=== PATIENT | male | born 1965 | race African-American/Black ===

== ENCOUNTER 2020-05-15 06:30 | Emergency (ER) | payer SELFPAY ==
[~2020-05-15] VITALS: Ht 193 cm; Wt 76.4 kg
[~2020-05-15 06:30] MED LIST: AMOX500C PO; HYDR-3164 PO; NAPR-682 PO; ORPH100T PO
--- NOTE | 2020-05-15 07:24 | PHYS DOC ---
Past Medical History Past Medical History: No Pertinent History Past Surgical History: No Surgical History Smoking Status: Never Smoker Alcohol Use: Occasionally Drug Use: None General Adult EDM: Chief Complaint: Congestion HPI: HPI: 54-year-old AA male who denies any significant past medical history, presents the ED with complaints of "soreness and tenderness" to the skin just lateral to his left nasal ala for the past 2 days. Patient states he took Tylenol and NyQuil last night. Woke up and noticed the skin had started to swell and is now extending to his left lower eye. 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 No bizu-mra-gyhromu decongestants, Sudafed or caffeine today. States he was told he has high blood pressure but does not have a primary care physician and takes no routine medications. No history of tobacco use or cocaine or meth use. Has no sinus pressure when bending forward. Denies any trauma to the face. Review of systems: Denies associated fever, chills, headache, neck stiffness, cough, sore throat, earache, dental pain, tooth ache, nasal congestion/discharge or rhinorrhea, postnasal drip, chest pain, hemoptysis, nausea, vomiting, diarrhea, blurry vision, neurologic deficits, abdominal or back pain, Review of Systems: Review of Systems: Constitutional: Denies fever or chills. [] Eyes: Denies change in visual acuity. [] HENT: Denies nasal congestion or sore throat. [] Respiratory: Denies cough or shortness of breath. [] Cardiovascular: Denies chest pain or edema. [] GI: Denies abdominal pain, nausea, vomiting,or diarrhea. [] : Denies dysuria. [] Musculoskeletal: Denies back pain or joint pain. [] Integument: Denies rash. [] Neurologic: Denies headache, focal weakness or sensory changes. [] Endocrine: Denies polyuria or polydipsia. [] Lymphatic: Denies swollen glands. [] Psychiatric: Denies depression or anxiety. [] Heart Score: Risk Factors: Risk Factors: DM, Current or recent (<one month) smoker, HTN, HLP, family history of CAD, obesity. Risk Scores: Score 0 - 3: 2.5% MACE over next 6 weeks - Discharge Home Score 4 - 6: 20.3% MACE over next 6 weeks - Admit for Clinical Observation Score 7 - 10: 72.7% MACE over next 6 weeks - Early Invasive Strategies Allergies: Allergies: Allergies Coded Allergies Type Severity Reaction Last Updated Verified No Known Drug Allergies 07/10/16 No Physical Exam: PE: Constitutional: Well developed, well nourished, no acute distress, non-toxic appearance. [] HENT: Normocephalic, atraumatic, bilateral external ears normal, bl cerumen impactions, no hearing loss, oropharynx moist, no oral exudates/erythema, nose normal. [] Eyes: PERRLA, EOMI, conjunctiva normal, no discharge, swelling over both upper and lower eyelids-eyelid not swollen shut, with edema over left upper cheek/left maxilla sinus with some increased warmth to this, due to race cannot appreciated erythema, no nuchal rigidity or meningismus Neck: Normal range of motion, no tenderness, supple, no stridor. [] Cardiovascular:Heart rate regular rhythm, no murmur [] Lungs & Thorax: Bilateral breath sounds clear to auscultation [] Abdomen: Bowel sounds normal, soft, no tenderness, no masses, no pulsatile masses. [] Skin: Warm, dry, no erythema, no rash. [] Back: No tenderness, no CVA tenderness. [] Extremities: No tenderness, no cyanosis, no clubbing, ROM intact, no edema. [] Neurologic: Alert and oriented X 3, normal motor function, normal sensory function, no focal deficits noted. [] Psychologic: Affect normal, judgement normal, mood normal. [] Current Patient Data: Vital Signs: Vital Signs Date Time Temp Pulse Resp B/P (MAP) Pulse Ox O2 Delivery O2 Flow Rate FiO2 05/15/20 06:35 98.1 85 16 202/120 (147) 99 Room Air 98.1 EKG: EKG: [] Radiology/Procedures: Radiology/Procedures: IMAGING REPORT Signed PATIENT: JULIA ROLON ACCOUNT: [id number] : 1965 LOCATION: ER AGE: 54 SEX: M EXAM STATUS: REG ER ORD. PHYSICIAN: KADEN AKINS DO REASON: left cheek swelling/pressure over maxillary sinus PROCEDURE: CT MAXILLOFACIAL W/CONTRAST Study: CT maxillofacial with contrast INDICATION: Left facial swelling/pressure over the maxillary sinus. COMPARISON: None. TECHNIQUE: Axial CT imaging of the maxillofacial structures performed after the intravenous injection of 70 cc Omnipaque 300. Coronal and sagittal reformats were obtained. One or more of the following individualized dose reduction techniques were utilized for this examination: 1. Automated exposure control 2. Adjustment of the mA and/or kV according to patient size 3. Use of iterative reconstruction technique. FINDINGS: Bones: No acute facial bone fracture. What is seen of the calvarium is intact. Normal temporomandibular joint alignment. Scattered mild degenerative changes of the visualized cervical spine on a background of a developmentally narrowed central canal. Numerous dental caries and a few periapical lucencies collectively involving the maxillary teeth more so than the mandibular teeth. Multiple teeth are missing. Soft tissues: Findings typical of facial cellulitis most notably along the aspect of the face extending from approximately the lower margin of the left preseptal orbit downward to the mandible. No subcutaneous fluid collection or retrobulbar fat stranding. No subperiosteal abscess is seen. No inflammatory changes within the deeper spaces of the imaged neck. The airway is patent. Normal epiglottis. Unremarkable visualized intracranial contents. No major vascular abnormality. Scattered paranasal sinus mucosal thickening without layering fluid. Normally aerated mastoid air cells and middle ears. IMPRESSION: 1. Facial cellulitis along the left aspect of the face from the lower preseptal region down to the mandible in the setting of advanced multifocal odontogenic disease. No subperiosteal abscess is seen, drainable fluid collection elsewhere or post-septal inflammation. 2. Mild degenerative changes at the upper cervical spine and the central canal is narrowed on a developmental basis. Electronically signed by: CATHI RYAN MD (05/15/2020 9:32 AM) [id number] DICTATED and SIGNED BY: CATHI RYAN MD DATE: 05/15/20 09 Course & Med Decision Making: Course & Med Decision Making Pertinent Labs and Imaging studies reviewed. (See chart for details) Concern for left facial cellulitis with preseptal cellulitis in the setting of uncontrolled asymptomatic hypertension (no chest pain, dyspnea or confusion). Labs with microcytic anemia and creatinine of 1.4, GFR 64 with no prior for comparison. Will dc home with debrox (has cerumen impactions-cannot visualize tm, no earache), keflex, bactrim and norvasc. Very strict return precautions were given for altered mental status, chest pain, shortness of breath, strokelike symptoms .encouraged urgent outpatient follow-up with PMD in 48 hours for wound check and follow-up for his renal function and blood pressure. Life- threatening processes were considered but are low suspicion at this time, given history and physical exam. Pt was educated on all prescription medications and adverse effects. All patient's questions were answered and pt was stable at time of discharge. Differential includes erythema multiforme, kimball-david syndrome, toxic epidermal necrolysis, staphylococcal scalded skin syndrome, necrotizing fasciitis/myositis/cellulitis, purpura fulminans, heparin or warfarin induced skin necrosis, drug rash, disseminated intravascular coagulation, disseminated gonococcal disease, vasculitis, septicemia, petechial disorder or coagulopathy, end organ damange-cva/renal falure/heart failure or ischemia I spoken with the patient and her caregivers. I explained the patient's condition, diagnoses and treatment plan based on the information available to me at this time. I have answered the patient and her caregiver's questions and addressed any concerns. The patient and her caregivers have a good understanding of patient's diagnosis, condition and treatment plan as can be expected at this point. Vital signs have been stable. Patient's condition is stable and appropriate for discharge from the emergency department. Patient will pursue further outpatient evaluation with primary care physician or other designated or consulting physician as outlined in the discharge instructions. The patient and/or caregivers are agreeable to this plan of care and follow-up instructions have been explained in detail. The patient and/or caregivers have received these instructions in written form and have expressed an understanding of the discharge instructions. The patient and/or caregivers are aware that any significant change of condition or worsening of symptoms should prompt immediate return to this or the closest emergency department or call to 911. Vince Disclaimer: Vince Disclaimer: This electronic medical record was generated, in whole or in part, using a voice recognition dictation system. Departure Departure Impression: Primary Impression: Facial cellulitis Additional Impressions: Elevated serum creatinine Uncontrolled hypertension Impacted cerumen of both ears Disposition: HOME, SELF-CARE Condition: STABLE Referrals: NO PCP (PCP) Patient Instructions: Cellulitis, Cerumen Impaction, Hypertension Additional Instructions: Pravin Bauman MD in the next 2-3 days [facility] [place] Address: [address], [address] [place] [address] Scripts Carbamide Peroxide (EAR WAX REMOVAL) 15 Ml Drops 5 DROP EACH EAR DAILY for 7 Days, #1 BOTTLE 0 Refills Prov: KADEN AKINS DO 05/15/20 Sulfamethoxazole/Trimethoprim (BACTRIM DS TABLET) 1 Each Tablet 1 TAB PO BID for infection for 10 Days, #20 TAB Prov: KADEN AKINS DO 05/15/20 Cephalexin (KEFLEX) 500 Mg Capsule 1 CAP PO Q8HRS for 10 Days, #30 CAP 0 Refills Prov: KADEN AKINS DO 05/15/20 Amlodipine Besylate (NORVASC) 5 Mg Tablet 1 TAB PO DAILY for 30 Days, #30 TAB 1 Refill Prov: KADEN AKINS DO 05/15/20 Justicifation of Admission Dx: Justifications for Admission: Justification of Admission Dx: N/A KADEN AKINS DO May 15, 2020 07:24
[2020-05-15] MEDS ORDERED: IOHEXOL 300 MG/ML 100ML VIAL. IV ONE (08:00)
[2020-05-15 08:06] LABS: BASO % 1 % (0-3); CALCIUM 8.6 mg/dL (8.5-10.1); CREATININE 1.4 mg/dL (0.7-1.3); EOS # 0.3 x10^3/uL (0.0-0.7); EOS % 5 % (0-3); GFR 64.1; HEMATOCRIT 29.5 % (39.0-53.0); HEMOGLOBIN 9.2 g/dL (13.0-17.5); LYMPH # 3.9 x10^3/uL (1.0-4.8); LYMPH % 55 % (24-48); MEAN CORPUSCULAR HEMOGLOBIN 22 pg (25-35); MEAN CORPUSCULAR HGB CONC 31 g/dL (31-37); MEAN CORPUSCULAR VOLUME 69 fL (79-100); MONO # 0.4 x10^3/uL (0.0-1.1); MONO % 6 % (0-9); NEUT # 2.5 x10^3/uL (1.8-7.7); NEUT % 34 % (31-73); PLATELET COUNT 191 x10^3/uL (140-400); POTASSIUM 3.9 mmol/L (3.5-5.1); RED BLOOD COUNT 4.28 x10^6/uL (4.30-5.70); RED CELL DISTRIBUTION WIDTH 22.2 % (11.5-14.5); WHITE BLOOD COUNT 7.1 x10^3/uL (4.0-11.0)
[2020-05-15 08:36] VITALS: BP 177/114
--- NOTE | 2020-05-15 09:35 | RAD ---
Study: CT maxillofacial with contrast INDICATION: Left facial swelling/pressure over the maxillary sinus. COMPARISON: None. TECHNIQUE: Axial CT imaging of the maxillofacial structures performed after the intravenous injection of 70 cc Omnipaque 300. Coronal and sagittal reformats were obtained. One or more of the following individualized dose reduction techniques were utilized for this examination: 1. Automated exposure control 2. Adjustment of the mA and/or kV according to patient size 3. Use of iterative reconstruction technique. FINDINGS: Bones: No acute facial bone fracture. What is seen of the calvarium is intact. Normal temporomandibular joint alignment. Scattered mild degenerative changes of the visualized cervical spine on a background of a developmentally narrowed central canal. Numerous dental caries and a few periapical lucencies collectively involving the maxillary teeth more so than the mandibular teeth. Multiple teeth are missing. Soft tissues: Findings typical of facial cellulitis most notably along the aspect of the face extending from approximately the lower margin of the left preseptal orbit downward to the mandible. No subcutaneous fluid collection or retrobulbar fat stranding. No subperiosteal abscess is seen. No inflammatory changes within the deeper spaces of the imaged neck. The airway is patent. Normal epiglottis. Unremarkable visualized intracranial contents. No major vascular abnormality. Scattered paranasal sinus mucosal thickening without layering fluid. Normally aerated mastoid air cells and middle ears. IMPRESSION: 1. Facial cellulitis along the left aspect of the face from the lower preseptal region down to the mandible in the setting of advanced multifocal odontogenic disease. No subperiosteal abscess is seen, drainable fluid collection elsewhere or post-septal inflammation. 2. Mild degenerative changes at the upper cervical spine and the central canal is narrowed on a developmental basis. Electronically signed by: CATHI RYAN MD (05/15/2020 9:32 AM) [id number]
[2020-05-15 11:16] LABS: % BASOS 1 % (0-3); % EOS 6 % (0-5); % LYMPHS 29 % (24-48); % MONOS 2 % (0-10); % SEGS 62 % (35-66)
[2020-05-15 11:17] LABS: ANISOCYTOSIS MOD; HYPOCHROMIA MOD; MICROCYTOSIS MARKED; PLT ESTIMATE ADEQUATE (ADEQUATE)
[2020-05-15] MEDS ORDERED: CEPH-264 PO (11:48)
[2020-05-15] MEDS ORDERED: CARB-171 EACH EAR (11:48)
[2020-05-15] MEDS ORDERED: AMLO5TAB4 PO (11:48)
[2020-05-15] MEDS ORDERED: SULF1TAB24 PO (11:48)
== END 2020-05-15 12:06 | disposition home or self-care (01) ==
LOC: ER 06:30
DX: L03.211 Cellulitis of face (principal); I10 Essential (primary) hypertension; H61.23 Impacted cerumen, bilateral; L53.9 Erythematous condition, unspecified; R60.0 Localized edema
CPT/HCPCS: 36415; 70487; 80048; 85007; 85025; 99285; Q9967